=== PATIENT | male | born 1960 | race Caucasian/White ===

== ENCOUNTER 2022-06-30 14:52 | Inpatient (IN) ==
[2022-06-30] MEDS ORDERED: Nicotine 2 MG GUM BC PRN (19:15)
[2022-06-30] MEDS: Metoprolol XL (24 HR) Succ 50 MG TAB.ER.24H PO SCH (23:25)
[2022-06-30] MEDS: Ipratropium/Albuterol Neb 3 ML IH PRN (23:42)
[2022-06-30] MEDS: Budesonide/Formoterol 160/4.5 1 PUFF INH IH SCH (23:47)
[2022-07-01] MEDS: Acetaminophen 325 MG TABLET PO PRN ×3 (04:15→20:57)
[2022-07-01 05:47] LABS: Basophils # 0.1 K/mcL (0.0-0.2); Basophils % 0.3 %; Eosinophils % 0.2 %; Hematocrit 40.7 % (37.5-50.1); Hemoglobin 13.4 g/dL (12.9-16.9); Immature Granulocytes % 1.8 % (0-4); Lymphocytes # 2.5 K/mcL (0.6-4.6); Lymphocytes % 11.8 %; Mean Corpuscular HGB Conc 32.9 g/dL (31.6-35.5); Mean Corpuscular Hemoglobin 30.3 pg (28.0-33.3); Mean Corpuscular Volume 92.1 fL (83.0-100.0); Mean Platelet Volume 10.9 fL (9.4-12.4); Monocytes # 1.5 K/mcL (0.0-1.3); Monocytes % 7.3 %; Neutrophils # 16.5 K/mcL (1.6-8.9); Platelet Count 333 K/mcL (140-400); Red Blood Count 4.42 M/mcL (4.19-5.50); Red Cell Distribution Width 12.2 % (11.5-14.5); Segmented Neutrophils % 78.6 %
[2022-07-01] MEDS: *HR* Enoxaparin 40 MG/0.4 ML SYRINGE SQ SCH (06:16)
[2022-07-01 06:19] LABS: BUN/Creatinine Ratio 48 (6-26); Blood Urea Nitrogen 28 mg/dL (8-23); Calcium 8.9 mg/dL (8.6-10.3); Carbon Dioxide 43 mEq/L (23-29); Chloride 92 mEq/L (98-107); Glucose 78 mg/dL (70-105); Osmolality,Calculated 290 (280-300); Potassium 4.2 mEq/L (3.5-5.1); Sodium 138 mEq/L (136-145); eGFR For African Americans > 60 (> 60); eGFR For Non-African Americans > 60 (> 60)
[2022-07-01] MEDS: Budesonide/Formoterol 160/4.5 1 PUFF INH IH SCH ×2 (08:47→20:14)
[2022-07-01] MEDS: predniSONE 10 MG TABLET PO SCH (09:37)
[2022-07-01] MEDS: DilTIAZem CD (24hr) 120 MG CAP.ER.24H PO SCH (09:37)
[2022-07-01] MEDS: Metoprolol XL (24 HR) Succ 50 MG TAB.ER.24H PO SCH ×2 (09:37→21:05)
[2022-07-01] MEDS: Aspirin Enteric Coated 81 MG Tablet PO SCH (09:37)
[2022-07-01] MEDS: Cholecalciferol (D-3) 1,000 UNIT (25MCG) TABLET PO SCH (09:37)
[2022-07-01] MEDS: acetaZOLAMIDE 250 MG TABLET PO SCH ×2 (15:55→20:57)
[2022-07-01] MEDS: Ipratropium/Albuterol Neb 3 ML IH PRN (20:14)
[2022-07-02] MEDS: *HR* Enoxaparin 40 MG/0.4 ML SYRINGE SQ SCH (04:43)
[2022-07-02 05:38] LABS: Hematocrit 41.1 % (37.5-50.1); Hemoglobin 13.3 g/dL (12.9-16.9); Mean Corpuscular HGB Conc 32.4 g/dL (31.6-35.5); Mean Corpuscular Hemoglobin 30.2 pg (28.0-33.3); Mean Corpuscular Volume 93.2 fL (83.0-100.0); Mean Platelet Volume 10.7 fL (9.4-12.4); Platelet Count 341 K/mcL (140-400); Red Blood Count 4.41 M/mcL (4.19-5.50); Red Cell Distribution Width 12.6 % (11.5-14.5); White Blood Count 17.2 K/mcL (4.3-11.1)
[2022-07-02] MEDS: Budesonide/Formoterol 160/4.5 1 PUFF INH IH SCH ×2 (08:47→20:42)
[2022-07-02] MEDS: Cholecalciferol (D-3) 1,000 UNIT (25MCG) TABLET PO SCH (09:03)
[2022-07-02] MEDS: acetaZOLAMIDE 250 MG TABLET PO SCH ×2 (09:03→20:44)
[2022-07-02] MEDS: Metoprolol XL (24 HR) Succ 50 MG TAB.ER.24H PO SCH ×2 (09:03→20:43)
[2022-07-02] MEDS: Aspirin Enteric Coated 81 MG Tablet PO SCH (09:03)
[2022-07-02] MEDS: DilTIAZem CD (24hr) 120 MG CAP.ER.24H PO SCH (09:03)
[2022-07-02] MEDS: predniSONE 10 MG TABLET PO SCH (09:03)
[2022-07-02 09:09] LABS: Hematocrit 43.2 % (37.5-50.1); Hemoglobin 14.1 g/dL (12.9-16.9); Mean Corpuscular HGB Conc 32.6 g/dL (31.6-35.5); Mean Corpuscular Hemoglobin 30.2 pg (28.0-33.3); Mean Corpuscular Volume 92.5 fL (83.0-100.0); Mean Platelet Volume 10.5 fL (9.4-12.4); Platelet Count 376 K/mcL (140-400); Red Blood Count 4.67 M/mcL (4.19-5.50); Red Cell Distribution Width 12.6 % (11.5-14.5); White Blood Count 18.2 K/mcL (4.3-11.1)
[2022-07-02] MEDS: Acetaminophen 325 MG TABLET PO PRN ×2 (09:10→20:43)
[2022-07-02 09:30] LABS: Alanine Aminotransferase 24 Units/L (7-52); Albumin 3.5 g/dL (3.5-5.7); Albumin/Globulin Ratio 1.4 (1.1-2.2); Alkaline Phosphatase 59 Units/L (34-104); Aspartate Amino Transferase 14 Units/L (13-39); BUN/Creatinine Ratio 38 (6-26); Bilirubin,Total 0.6 mg/dL (0.3-1.0); Blood Urea Nitrogen 25 mg/dL (8-23); Calcium 9.1 mg/dL (8.6-10.3); Carbon Dioxide 36 mEq/L (23-29); Chloride 97 mEq/L (98-107); Globulin 2.5 g/dL (2.4-3.5); Glucose 113 mg/dL (70-105); Magnesium 1.7 mg/dL (1.6-2.6); Osmolality,Calculated 291 (280-300); Potassium 3.9 mEq/L (3.5-5.1); Sodium 138 mEq/L (136-145)
[2022-07-02] MEDS: Ipratropium/Albuterol Neb 3 ML IH PRN (20:45)
[2022-07-03] MEDS: Acetaminophen 325 MG TABLET PO PRN (06:51)
[2022-07-03] MEDS: *HR* Enoxaparin 40 MG/0.4 ML SYRINGE SQ SCH (06:52)
[2022-07-03 07:08] VITALS: BP 108/73; PULSE 59; TEMP 97.6
[2022-07-03] MEDS: Budesonide/Formoterol 160/4.5 1 PUFF INH IH SCH (10:07)
[2022-07-03] MEDS: Ipratropium/Albuterol Neb 3 ML IH PRN (10:11)
[2022-07-03 10:14] VITALS: RESP 19; O2SAT 95
[2022-07-03] MEDS: predniSONE 10 MG TABLET PO SCH (10:41)
[2022-07-03] MEDS: DilTIAZem CD (24hr) 120 MG CAP.ER.24H PO SCH (10:41)
[2022-07-03] MEDS: Metoprolol XL (24 HR) Succ 50 MG TAB.ER.24H PO SCH (10:42)
[2022-07-03] MEDS: Cholecalciferol (D-3) 1,000 UNIT (25MCG) TABLET PO SCH (10:42)
[2022-07-03] MEDS: acetaZOLAMIDE 250 MG TABLET PO SCH (10:42)
[2022-07-03] MEDS: Aspirin Enteric Coated 81 MG Tablet PO SCH (10:42)
[2022-07-03] MEDS ORDERED: Acetaminophen 325 MG TABLET PO PRN (14:17)
== END 2022-07-03 16:46 | disposition home health service (06) | DRG 139 ==
LOC: INPGRE 22:35
PROVIDERS: ADMIT Family Medicine; ATTEND Family Medicine